=== PATIENT | female | born 1990 | race American Indian/Alaskan Native ===

== ENCOUNTER 2020-01-29 14:28 | Emergency (ER) | payer MEDICAID ==
[2020-01-29 14:39] VITALS: BP 110/51
--- NOTE | 2020-01-29 15:40 | Emergency Department Report ---
ED Back Pain/Injury HPI - General Chief Complaint: Headache Stated Complaint: DIZZY/SPINE PAIN/LEGS GOING NUMB Time Seen by Provider: 01/29/20 15:32 Source: patient Limitations: No Limitations - History of Present Illness Initial Comments: 29-year-old -Greek female presents to the emergency room complaining of lower back pain that radiates down her buttock into her thighs and sometimes to her toes. Patient states this been going on for a while. Patient states that she has a 30 pound baby that she lifts constantly. Patient denies any nausea vomiting. Patient thinks she may be last menstrual period that she can remember with November 21, 2019. Patient admits to not using any protection during intercourse. Patient denies any abdominal pain no shortness of breath chest pain or cough. MD Complaint: back pain Onset/Timin -: week(s) Radiation: buttocks, left leg, right leg Severity: moderate Severity scale (0 -10): 7 Quality: burning, sharp Consistency: intermittent Improves With: none Worsens With: movement, sitting upright Associated Symptoms: denies other symptoms, numbness (Intermittent to her toes when her back pain presents). denies: difficulty walking, cough, difficulty urinating, incontinence, fever/chills, headaches, abdominal pain, loss of appetite, nausea/vomiting - Related Data Allergies Allergy/AdvReac Type Severity Reaction Status Date / Time No Known Allergies Allergy Unverified 01/29/20 14:31 ED Review of Systems ROS: Stated complaint: DIZZY/SPINE PAIN/LEGS GOING NUMB Other details as noted in HPI Comment: All other systems reviewed and negative ED Past Medical Hx - Past Medical History Previous Medical History?: No - Surgical History Additional Surgical History: C SECTION - Social History Smoking Status: Never Smoker Substance Use Type: None ED Physical Exam - General Limitations: No Limitations General appearance: alert, in no apparent distress - Head Head exam: Present: atraumatic, normocephalic - Eye Eye exam: Present: normal appearance - ENT ENT exam: Present: mucous membranes moist - GI/Abdominal GI/Abdominal exam: Present: soft. Absent: distended, tenderness - Expanded Back Exam Expanded Back exam: Sciatic Notch Tenderness: Left, Right, Positive Straight Leg Raise: Left, Right - Neurological Exam Neurological exam: Present: alert, oriented X3, normal gait - Psychiatric Psychiatric exam: Present: normal affect, normal mood - Skin Skin exam: Present: warm, dry, intact, normal color. Absent: rash ED Course Vital Signs 01/29/20 14:38 Temperature 98.4 F Pulse Rate 63 Respiratory 14 Rate Blood Pressure 110/51 [Left] O2 Sat by Pulse 100 Oximetry ED Medical Decision Making - Medical Decision Making 29-year-old -Greek female presents to the emergency room complaining of lower back pain that radiates down her buttock into her thighs and sometimes to her toes. Patient states this been going on for a while. Patient states that she has a 30 pound baby that she lifts constantly. Patient denies any nausea vomiting. Patient thinks she may be last menstrual period that she can remember with November 21, 2019. Patient admits to not using any protection during intercourse. Patient denies any abdominal pain no shortness of breath chest pain or cough. Urinalysis and urine test pending. Patient has a positive lower back exam for sciatica. [employer] Equipment Operator reported to me that patient left AMA. Review of patient's labs so far she is . Made an attempt to contact patient her phone is not accepting phone calls at this time. Critical care attestation.: If time is entered above; I have spent that time in minutes in the direct care of this critically ill patient, excluding procedure time. ED Disposition Clinical Impression: Positive test, Lumbar back pain with radiculopathy affecting lower extremity Disposition: LEFT AGAINST MED ADVICE Is pt being admited?: No Does the pt Need Aspirin: No Condition: Undetermined Referrals: BERENICE ORTIZ NP [Primary Care Provider] - 3-5 Days Forms: AMA Form
[2020-01-29 17:11] LABS: HCG Qualitative,Urine Positive (Negative)
[2020-01-29 17:17] LABS: Bilirubin,Urine NEG (Negative); Blood,Urine MOD (Negative); Color,Urine Yellow (Yellow); Mucus,Urine 2+ /HPF; Protein,Urine <15 mg/dL mg/dL (Negative); Urobilinogen,Urine < 2.0 mg/dL (<2.0)
== END 2020-01-29 17:24 | disposition left against medical advice (07) ==
LOC: ED 14:28
DX: M54.16 Radiculopathy, lumbar region (principal); R20.0 Anesthesia of skin; R42 Dizziness and giddiness; Z32.01 Encounter for pregnancy test, result positive; Z98.890 Other specified postprocedural states
CPT/HCPCS: 81001; 81025